=== PATIENT | male | born 1965 | race Caucasian/White ===

== ENCOUNTER 2022-07-15 06:53 | Emergency (ER) | payer OTHER, MEDICAID ==
[~2022-07-15] VITALS: Ht 172.7 cm; Wt 108.9 kg
[~2022-07-15 06:53] MED LIST: ARIP15TA2 PO; LEXAPRO PO; METF1000 PO
[2022-07-15 07:10] VITALS: BP_SYST 147
--- NOTE | 2022-07-15 07:20 | NUR ---
Placed in room 05 . Placed on putty glazer, blood pressure machine and pulse oximeter. To gown for exam. Side rails up. Report given to SOREN FLORES.
--- NOTE | 2022-07-15 07:21 | NUR ---
ER DR. NGUYỄN EXAMINING PT
[2022-07-15] MEDS ORDERED: KETOROLAC TROMETHAMINE 60 MG/2 ML VIAL IM ONE (07:45)
--- NOTE | 2022-07-15 08:02 | NUR ---
MEDICATED ORDERED, WILL MONITOR
--- NOTE | 2022-07-15 08:14 | NUR ---
TAKEN TO RADIOLOGY VIA AMBULATORY
--- NOTE | 2022-07-15 08:20 | NUR ---
RETURNED TO BED #5 SAFELY, NO CHANGES
--- NOTE | 2022-07-15 08:36 | NUR ---
PT STATES GOOD RELIEF WITH TORADOL, STATES PAIN ONLY WHEN HE COUGHS OR SNEEZES.
--- NOTE | 2022-07-15 08:40 | NUR ---
DR NGUYỄN AT BEDSIDE FOR RE-EVALUATION. SPEAKING WITH PT REGARDING XRAYS
[2022-07-15] MEDS ORDERED: HYDR-3927 PO (08:52)
--- NOTE | 2022-07-15 09:06 | NUR ---
Patient given written and verbal discharge instructions and verbalizes understanding. ER MD discussed with patient the results and treatment provided. Patient in stable condition. ID arm band removed. Rx of NORCO given. Patient educated on pain management and to follow up with PMD. Pain Scale 0/10. Opportunity for questions provided and answered. Medication side effect fact sheet provided.
== END 2022-07-15 09:06 | disposition home or self-care (01) ==
LOC: SED 06:53
DX: S22.32XA Fracture of one rib, left side, initial encounter for closed fracture (principal); E11.9 Type 2 diabetes mellitus without complications; Z88.1 Allergy status to other antibiotic agents; Z79.899 Other long term (current) drug therapy; X58.XXXA Exposure to other specified factors, initial encounter; Y93.89 Activity, other specified; Y92.89 Other specified places as the place of occurrence of the external cause; Y99.8 Other external cause status
CPT/HCPCS: 99283; 71045; 93005; 71100; 96372; J1885

== ENCOUNTER 2023-01-02 12:42 | Inpatient (IN) | payer OTHER, MEDICAID ==
[~2023-01-02] VITALS: Ht 172.7 cm; Wt 117.9 kg
[~2023-01-02 12:42] MED LIST changes: +HYDR-3927 PO
[2023-01-02 12:54] VITALS: BP_SYST 124; PULSE 124; RESP 18; TEMP 99.9; O2SAT 20; O2SAT 95
[2023-01-02 13:57] LABS: HEMOGLOBIN 15.1 g/dL (14.0-18.0); MEAN CORPUSCULAR HEMOGLOBIN 29 pg (27-31); MEAN CORPUSCULAR HGB CONC 34 % (32-36); MEAN CORPUSCULAR VOLUME 87 fL (79.0-98.0); PLATELET COUNT (AUTO) 226 K/uL (130-430); RED BLOOD CELL COUNT(AUTO) 5.18 MIL/uL (4.2-6.2); RED CELL DISTRIBUTION WIDTH 13.3 % (9.0-15.0)
[2023-01-02 13:59] LABS: BILIRUBIN,URINE NEGATIVE (NEGATIVE); CLARITY/URINE CLEAR (CLEAR); COLOR,URINE YELLOW (YELLOW); GLUCOSE,URINE TRACE (NEGATIVE); KETONES,URINE NEGATIVE (NEGATIVE); LEUKOCYTE ESTERASE ,URINE NEGATIVE (NEGATIVE); NITRITE, URINE NEGATIVE (NEGATIVE); PROTEIN URINE NEGATIVE (NEGATIVE); UROBILINOGEN,URINE 0.2 (0.2-1.0)
[2023-01-02 14:02] LABS: BLOOD, URINE TRACE (NEGATIVE)
[2023-01-02 14:05] LABS: WHITE BLOOD COUNT (AUTO) 30.5 K/uL (4.8-10.8)
[2023-01-02 14:06] LABS: ANION GAP 11 (5-15); CALCIUM 9.2 mg/dL (8.4-11.0); CARBON DIOXIDE 22 mmol/L (23-29); CHLORIDE 97 mmol/L (98-107); CREATININE 1.16 mg/dL (0.55-1.30); GFR AFRICAN AMERICAN 84 mL/min (>90); GLUCOSE 192 mg/dL (74-106); POTASSIUM 4.5 mmol/L (3.5-5.1); SODIUM SERUM 130 mmol/L (136-145); UREA NITROGEN, BLOOD 15 mg/dL (8-21)
[2023-01-02 14:08] LABS: GFR NON AFRICAN-AMERICAN 69 mL/min (>90)
[2023-01-02 14:09] LABS: PROTHROMBIN TIME 10.3 SECS (9.5-12.5)
[2023-01-02 14:15] LABS: BACTERIA,URINE None Seen /HPF (None Seen); RBC,URINE 0-3 /HPF (0-3); WBC,URINE NONE SEEN /HPF (0-3)
[2023-01-02 14:22] LABS: ALBUMIN 3.8 g/dL (3.4-4.8); ASPARTATE AMINOTRANSFERASE 12 U/L (10-37); THYROID STIMULATING HORMONE 1.34 uIu/mL (0.34-4.82); TOTAL BILIRUBIN 0.6 mg/dL (0.0-1.0); TOTAL PROTEIN, SERUM 7.6 g/dL (6.4-8.3)
[2023-01-02 14:35] LABS: ALANINE AMINOTRANSFERASE 17 U/L (12-78)
[2023-01-02 14:38] LABS: BAND % (MANUAL) 7 % (0-6); LYMPHOCYTES % (MANUAL) 7 % (20-46)
[2023-01-02 14:39] LABS: BASOPHILS % (MANUAL) 0 % (0-2); EOSINOPHILS % (MANUAL) 0 % (0-7); MONOCYTES % (MANUAL) 4 % (0-11); PLATELET ESTIMATE ADEQUATE (ADEQUATE)
[2023-01-02] MEDS ORDERED: NACL 0.9% 1,000 ML IV ONE (15:15)
[2023-01-02 16:30] VITALS: BP_SYST 111; PULSE 98; RESP 18; TEMP 98.2; O2SAT 94
[2023-01-02] MEDS ORDERED: TRAZ-251 PO (16:30)
[2023-01-02] MEDS ORDERED: TAMS0.4C96 PO (16:30)
[2023-01-02] MEDS ORDERED: OLAN10TA71 PO (16:30)
[2023-01-02] MEDS ORDERED: BENZ1TAB7 PO (16:30)
[2023-01-02] MEDS ORDERED: HAL5 PO (16:30)
[2023-01-02] MEDS ORDERED: LAMO100T2 PO (16:30)
[2023-01-02] MEDS ORDERED: LISI20TA30 PO (16:30)
[2023-01-02] MEDS ORDERED: PROP20TA7 PO (16:30)
[2023-01-02] MEDS ORDERED: PRIM250T8 PO (16:30)
[2023-01-02 16:39] VITALS: BP_SYST 111; PULSE 105; RESP 17; TEMP 97.2
[2023-01-02 17:43] LABS: INFLUENZA TYPE A negative (NEGATIVE); INFLUENZA TYPE B NEGATIVE (NEGATIVE)
[2023-01-02] MEDS ORDERED: BACITRACIN 1 GM OINT TP ONE (18:26)
[2023-01-02 20:00] VITALS: BP_SYST 109; PULSE 107; RESP 18; TEMP 97.2; O2SAT 96
[2023-01-02] MEDS ORDERED: NALOXONE HCL 0.4 MG/ML AMP (NARCAN) IVP PRN (22:15)
[2023-01-02] MEDS ORDERED: HYDROcodone/ACETAMIN 5-325 MG TAB (NORCO/ VICODIN) PO PRN (22:15)
[2023-01-02] MEDS ORDERED: HYDROcodone/ACETAMIN 10-325 MG TAB PO PRN (22:15)
[2023-01-02] MEDS ORDERED: LORazepam 2 MG/ML VIAL IVP PRN (22:15)
[2023-01-02] MEDS ORDERED: ONDANSETRON HCL 4 MG/2 ML VIAL IVP PRN (22:15)
[2023-01-02] MEDS ORDERED: ACETAMINOPHEN 325 MG TABLET PO PRN (22:15)
[2023-01-03] MEDS: cefTRIAXone 1 GM IVPB PREMIX 50 ML IV SCH ×2 (01:25→22:43)
[2023-01-03 05:24] LABS: BASOPHILS # (AUTO) 0.1 K/uL (0.0-0.2); BASOPHILS % (AUTO) 0.5 % (0.0-2.0); EOSINOPHILS # (AUTO) 0.7 K/uL (0.0-0.4); EOSINOPHILS % (AUTO) 4.7 % (0.0-4.0); HEMATOCRIT 40.4 % (36-54); HEMOGLOBIN 13.8 g/dL (14.0-18.0); LYMPHOCYTES # (AUTO) 2.1 K/uL (1.0-5.5); LYMPHOCYTES % (AUTO) 13.6 % (20.5-51.5); MEAN CORPUSCULAR HEMOGLOBIN 30 pg (27-31); MEAN CORPUSCULAR HGB CONC 34 % (32-36); MEAN CORPUSCULAR VOLUME 87 fL (79.0-98.0); MONOCYTES % (AUTO) 6.9 % (1.7-9.3); NEUTROPHILS # (AUTO) 11.2 K/uL (1.8-7.7); NEUTROPHILS % (AUTO) 74.3 % (40.0-70.0); PLATELET COUNT (AUTO) 175 K/uL (130-430); RED BLOOD CELL COUNT(AUTO) 4.65 MIL/uL (4.2-6.2); RED CELL DISTRIBUTION WIDTH 13.2 % (9.0-15.0)
[2023-01-03 06:12] LABS: ALBUMIN 3.3 g/dL (3.4-4.8); CALCIUM 8.7 mg/dL (8.4-11.0); CREATININE 0.97 mg/dL (0.55-1.30); PHOSPHORUS 3.2 mg/dL (2.7-4.5); POTASSIUM 3.9 mmol/L (3.5-5.1); TOTAL BILIRUBIN 0.3 mg/dL (0.0-1.0); TOTAL PROTEIN, SERUM 6.7 g/dL (6.4-8.3)
[2023-01-03 07:00] VITALS: BP_SYST 114; PULSE 83; RESP 16; TEMP 98
[2023-01-03 09:00] VITALS: BP_SYST 110; PULSE 82; RESP 16; TEMP 97; O2SAT 93; O2SAT 95
[2023-01-03] MEDS ORDERED: PROPRANOLOL HCL 10 MG TABLET (INDERAL) PO SCH (09:00)
[2023-01-03] MEDS: metFORMIN HCL 500 MG TABLET PO SCH ×2 (09:41→22:22)
[2023-01-03] MEDS: HALOPERIDOL 5 MG TABLET (HALDOL) PO SCH ×3 (09:41→22:24)
[2023-01-03] MEDS: PRIMIDONE 250 MG TABLET PO SCH ×3 (09:41→22:24)
[2023-01-03] MEDS: BENZTROPINE MESYLATE 1 MG TABLET PO SCH (09:41)
[2023-01-03] MEDS: ARIPiprazole 5 MG TAB PO SCH (09:41)
[2023-01-03] MEDS: TAMSULOSIN HCL 0.4 MG CAP PO SCH (09:41)
[2023-01-03] MEDS: LamoTRIgine 100 MG TABLET PO SCH ×2 (09:41→22:22)
[2023-01-03] MEDS: INSULIN GLARGINE 100 UNITS/ML, 10 ML VIAL SUBCUT SCH (11:56)
[2023-01-03 12:00] VITALS: BP_SYST 110; PULSE 82; RESP 16; TEMP 97
[2023-01-03 16:00] VITALS: BP_SYST 97; PULSE 91; RESP 16; TEMP 98.5; O2SAT 92
[2023-01-03 18:00] VITALS: BP_SYST 111; PULSE 99; RESP 16; TEMP 97.5; O2SAT 95
[2023-01-03 20:00] VITALS: BP_SYST 114; PULSE 90; RESP 17; TEMP 97.4; O2SAT 90
[2023-01-03] MEDS ORDERED: traZODone HCL 50 MG TABLET (DESYREL) PO SCH (21:00)
[2023-01-03] MEDS ORDERED: OLANZapine 10 MG TABLET PO SCH (21:00)
[2023-01-03] MEDS ORDERED: lisinopriL 20 MG TABLET PO SCH (21:00)
[2023-01-03] MEDS: PROPRANOLOL HCL 10 MG TABLET (INDERAL) PO SCH (22:23)
[2023-01-04 00:11] VITALS: BP_SYST 101; PULSE 78; RESP 20; TEMP 97; O2SAT 95
[2023-01-04 01:36] VITALS: O2SAT 96
[2023-01-04 08:00] VITALS: BP_SYST 109; PULSE 92; RESP 20; TEMP 97.2; O2SAT 92
[2023-01-04 09:20] LABS: BASOPHILS # (AUTO) 0.1 K/uL (0.0-0.2); BASOPHILS % (AUTO) 0.6 % (0.0-2.0); EOSINOPHILS # (AUTO) 0.7 K/uL (0.0-0.4); EOSINOPHILS % (AUTO) 6.1 % (0.0-4.0); HEMATOCRIT 41.4 % (36-54); HEMOGLOBIN 13.9 g/dL (14.0-18.0); LYMPHOCYTES # (AUTO) 1.3 K/uL (1.0-5.5); LYMPHOCYTES % (AUTO) 11.9 % (20.5-51.5); MEAN CORPUSCULAR HEMOGLOBIN 29 pg (27-31); MEAN CORPUSCULAR HGB CONC 34 % (32-36); MEAN CORPUSCULAR VOLUME 88 fL (79.0-98.0); MONOCYTES % (AUTO) 8.9 % (1.7-9.3); NEUTROPHILS # (AUTO) 8.1 K/uL (1.8-7.7); NEUTROPHILS % (AUTO) 72.5 % (40.0-70.0); PLATELET COUNT (AUTO) 186 K/uL (130-430); RED BLOOD CELL COUNT(AUTO) 4.73 MIL/uL (4.2-6.2); RED CELL DISTRIBUTION WIDTH 13.1 % (9.0-15.0); WHITE BLOOD COUNT (AUTO) 11.1 K/uL (4.8-10.8)
[2023-01-04] MEDS: TAMSULOSIN HCL 0.4 MG CAP PO SCH (09:35)
[2023-01-04] MEDS: ARIPiprazole 5 MG TAB PO SCH (09:36)
[2023-01-04] MEDS: metFORMIN HCL 500 MG TABLET PO SCH (09:36)
[2023-01-04] MEDS: BENZTROPINE MESYLATE 1 MG TABLET PO SCH (09:36)
[2023-01-04] MEDS: PROPRANOLOL HCL 10 MG TABLET (INDERAL) PO SCH (09:36)
[2023-01-04] MEDS: LamoTRIgine 100 MG TABLET PO SCH (09:36)
[2023-01-04] MEDS: INSULIN GLARGINE 100 UNITS/ML, 10 ML VIAL SUBCUT SCH (09:41)
[2023-01-04] MEDS: HALOPERIDOL 5 MG TABLET (HALDOL) PO SCH ×2 (09:45→14:57)
[2023-01-04] MEDS: PRIMIDONE 250 MG TABLET PO SCH ×2 (09:45→14:57)
[2023-01-04 11:46] VITALS: BP_SYST 98; PULSE 90; RESP 18; TEMP 97.8; O2SAT 94
[2023-01-04] MEDS ORDERED: AMOX-423 PO (15:35)
[2023-01-04 16:00] VITALS: BP_SYST 111; PULSE 92; RESP 20; TEMP 98.1; O2SAT 95
[2023-01-04 19:43] VITALS: BP_SYST 102; PULSE 77; RESP 17; TEMP 96.8; O2SAT 92
== END 2023-01-04 20:35 | disposition home or self-care (01) | DRG 871 ==
LOC: SED 12:42 → STU 15:24 → SMU 01-04 17:38
PROVIDERS: ADMIT Specialist; ATTEND Specialist
DX: A41.9 Sepsis, unspecified organism (principal); J96.20 Acute and chronic respiratory failure, unspecified whether with hypoxia or hypercapnia; I48.0 Paroxysmal atrial fibrillation; E66.01 Morbid (severe) obesity due to excess calories; N40.0 Benign prostatic hyperplasia without lower urinary tract symptoms; Z20.822 Contact with and (suspected) exposure to COVID-19; E11.9 Type 2 diabetes mellitus without complications; Z68.39 Body mass index [BMI] 39.0-39.9, adult; Z79.01 Long term (current) use of anticoagulants; Z79.891 Long term (current) use of opiate analgesic; Z79.899 Other long term (current) drug therapy
CPT/HCPCS: 36415; 71045; 76376; 80053; 81000; 82962; 83605; 83735; 83880; 84100; 84439; 84443; 84484; 85007; 85025; 85027; 85610-TC; 85730-TC; 87040; 87086; 93005; 93306; 96360; 96361; 99291; G0378; J0696; J1815

== ENCOUNTER 2023-07-30 17:03 | Emergency (ER) | payer OTHER, MEDICAID ==
[~2023-07-30] VITALS: Ht 172.7 cm; Wt 113.4 kg
[2023-07-30 17:03] VITALS: BP_SYST 146; PULSE 105; RESP 18; TEMP 97.8; O2SAT 98
[~2023-07-30 17:03] MED LIST changes: +AMOX-423 PO; +BENZ1TAB7 PO; +HAL5 PO; +LAMO100T2 PO; +LISI20TA30 PO; +OLAN10TA71 PO; +PRIM250T8 PO; +PROP20TA7 PO; +TAMS0.4C96 PO; +TRAZ-251 PO
[2023-07-30] MEDS ORDERED: NITR-85 PO (17:21)
[2023-07-30] MEDS ORDERED: PHEN-726 PO (17:21)
[2023-07-30 18:00] LABS: PROTHROMBIN TIME 10.1 SECS (9.5-12.5)
[2023-07-30 18:03] LABS: BASOPHILS # (AUTO) 0.1 K/uL (0.0-0.2); EOSINOPHILS # (AUTO) 0.7 K/uL (0.0-0.4); EOSINOPHILS % (AUTO) 6.7 % (0.0-4.0); HEMATOCRIT 44.4 % (36-54); HEMOGLOBIN 15.7 g/dL (14.0-18.0); LYMPHOCYTES # (AUTO) 2.2 K/uL (1.0-5.5); LYMPHOCYTES % (AUTO) 21.1 % (20.5-51.5); MEAN CORPUSCULAR HEMOGLOBIN 30 pg (27-31); MEAN CORPUSCULAR HGB CONC 36 % (32-36); MEAN CORPUSCULAR VOLUME 85 fL (79.0-98.0); MONOCYTES # (AUTO) 0.8 K/uL (0.0-1.0); MONOCYTES % (AUTO) 8.1 % (1.7-9.3); NEUTROPHILS # (AUTO) 6.5 K/uL (1.8-7.7); NEUTROPHILS % (AUTO) 63.1 % (40.0-70.0); PLATELET COUNT (AUTO) 227 K/uL (130-430); RED BLOOD CELL COUNT(AUTO) 5.21 MIL/uL (4.2-6.2); RED CELL DISTRIBUTION WIDTH 13.8 % (9.0-15.0); WHITE BLOOD COUNT (AUTO) 10.3 K/uL (4.8-10.8)
[2023-07-30 18:07] LABS: ANION GAP 11 (5-15); CALCIUM 8.6 mg/dL (8.4-11.0); CARBON DIOXIDE 24 mmol/L (23-29); CHLORIDE 99 mmol/L (98-107); CREATININE 1.27 mg/dL (0.55-1.30); GFR AFRICAN AMERICAN 75 mL/min (>90); GLUCOSE 241 mg/dL (74-106); POTASSIUM 4.6 mmol/L (3.5-5.1); SODIUM SERUM 134 mmol/L (136-145); UREA NITROGEN, BLOOD 19 mg/dL (8-21)
[2023-07-30 18:08] LABS: GFR NON AFRICAN-AMERICAN 62 mL/min (>90)
[2023-07-30] MEDS: ASPIRIN 81 MG TAB.CHEW PO ONE (19:32)
[2023-07-30 20:33] VITALS: BP_SYST 132; PULSE 92; RESP 20; TEMP 97.5; O2SAT 97
== END 2023-07-30 20:23 | disposition home or self-care (01) ==
LOC: SED 17:03
DX: R06.02 Shortness of breath (principal); E11.9 Type 2 diabetes mellitus without complications; Z88.8 Allergy status to other drugs, medicaments and biological substances; Z79.899 Other long term (current) drug therapy
CPT/HCPCS: 36415; 71045; 80048; 83880; 84484; 85025; 85379; 85610; 85730; 93005; 99285

== ENCOUNTER 2023-08-19 11:35 | Emergency (ER) | payer OTHER, MEDICAID ==
[~2023-08-19] VITALS: Ht 172.7 cm; Wt 113.4 kg
[2023-08-19 11:44] VITALS: BP_SYST 133; PULSE 107; RESP 16; TEMP 97.4; O2SAT 94
[2023-08-19] MEDS ORDERED: cefTRIAXone 2 GM VIAL ONE (12:10)
[2023-08-19] MEDS: cefTRIAXone 2 GM VIAL IM ONE (12:16)
[2023-08-19 12:42] LABS: BASOPHILS # (AUTO) 0.1 K/uL (0.0-0.2); EOSINOPHILS # (AUTO) 0.6 K/uL (0.0-0.4); EOSINOPHILS % (AUTO) 4.8 % (0.0-4.0); HEMATOCRIT 43.8 % (36-54); HEMOGLOBIN 15.2 g/dL (14.0-18.0); LYMPHOCYTES # (AUTO) 1.7 K/uL (1.0-5.5); LYMPHOCYTES % (AUTO) 14.7 % (20.5-51.5); MEAN CORPUSCULAR HEMOGLOBIN 30 pg (27-31); MEAN CORPUSCULAR HGB CONC 35 % (32-36); MEAN CORPUSCULAR VOLUME 85 fL (79.0-98.0); MONOCYTES # (AUTO) 0.8 K/uL (0.0-1.0); MONOCYTES % (AUTO) 6.9 % (1.7-9.3); NEUTROPHILS # (AUTO) 8.6 K/uL (1.8-7.7); NEUTROPHILS % (AUTO) 72.6 % (40.0-70.0); PLATELET COUNT (AUTO) 235 K/uL (130-430); RED BLOOD CELL COUNT(AUTO) 5.13 MIL/uL (4.2-6.2); WHITE BLOOD COUNT (AUTO) 11.9 K/uL (4.8-10.8)
[2023-08-19] MEDS ORDERED: CEPH250C PO (13:59)
[2023-08-19] MEDS ORDERED: CLIN300C3 PO (13:59)
[2023-08-19 14:31] VITALS: BP_SYST 129; PULSE 95; RESP 22; TEMP 97.8; O2SAT 94
== END 2023-08-19 14:36 | disposition home or self-care (01) ==
LOC: SED 11:35
DX: L03.116 Cellulitis of left lower limb (principal); E11.9 Type 2 diabetes mellitus without complications; Z88.1 Allergy status to other antibiotic agents; Z79.899 Other long term (current) drug therapy
CPT/HCPCS: 99283; 85025; 87040; 36415; 93005; 96372; J0696

== ENCOUNTER 2023-08-20 16:57 | Emergency (ER) | payer OTHER, MEDICAID ==
[~2023-08-20] VITALS: Ht 172.7 cm; Wt 113.4 kg
[~2023-08-20 16:57] MED LIST changes: +CEPH250C PO; +CLIN300C3 PO
[2023-08-20 17:32] VITALS: BP_SYST 114; PULSE 117; RESP 18; TEMP 97; O2SAT 92
[2023-08-20 19:42] LABS: BILIRUBIN,URINE NEGATIVE (NEGATIVE); BLOOD, URINE NEGATIVE (NEGATIVE); CLARITY/URINE CLEAR (CLEAR); COLOR,URINE YELLOW (YELLOW); GLUCOSE,URINE NEGATIVE (NEGATIVE); KETONES,URINE NEGATIVE (NEGATIVE); LEUKOCYTE ESTERASE ,URINE NEGATIVE (NEGATIVE); NITRITE, URINE NEGATIVE (NEGATIVE); PROTEIN URINE NEGATIVE (NEGATIVE); UROBILINOGEN,URINE 0.2 (0.2-1.0)
[2023-08-20 19:47] LABS: BASOPHILS # (AUTO) 0.1 K/uL (0.0-0.2); BASOPHILS % (AUTO) 0.7 % (0.0-2.0); EOSINOPHILS # (AUTO) 0.7 K/uL (0.0-0.4); EOSINOPHILS % (AUTO) 6.2 % (0.0-4.0); HEMATOCRIT 44.2 % (36-54); HEMOGLOBIN 15.3 g/dL (14.0-18.0); LYMPHOCYTES # (AUTO) 1.6 K/uL (1.0-5.5); LYMPHOCYTES % (AUTO) 13.3 % (20.5-51.5); MEAN CORPUSCULAR HEMOGLOBIN 29 pg (27-31); MEAN CORPUSCULAR HGB CONC 35 % (32-36); MEAN CORPUSCULAR VOLUME 85 fL (79.0-98.0); MONOCYTES # (AUTO) 1.2 K/uL (0.0-1.0); MONOCYTES % (AUTO) 9.7 % (1.7-9.3); NEUTROPHILS # (AUTO) 8.4 K/uL (1.8-7.7); NEUTROPHILS % (AUTO) 70.1 % (40.0-70.0); PLATELET COUNT (AUTO) 250 K/uL (130-430); RED BLOOD CELL COUNT(AUTO) 5.23 MIL/uL (4.2-6.2); RED CELL DISTRIBUTION WIDTH 13.8 % (9.0-15.0)
[2023-08-20 19:54] LABS: PROTHROMBIN TIME 10.2 SECS (9.5-12.5)
[2023-08-20] MEDS: NACL 0.9% 1,000 ML IV ONE (19:59)
[2023-08-20 20:05] LABS: ANION GAP 9 (5-15); CALCIUM 9.4 mg/dL (8.4-11.0); CARBON DIOXIDE 25 mmol/L (23-29); CHLORIDE 99 mmol/L (98-107); GFR AFRICAN AMERICAN 80 mL/min (>90); GLUCOSE 154 mg/dL (74-106); POTASSIUM 4.7 mmol/L (3.5-5.1); SODIUM SERUM 133 mmol/L (136-145); UREA NITROGEN, BLOOD 26 mg/dL (8-21)
[2023-08-20 20:08] LABS: GFR NON AFRICAN-AMERICAN 66 mL/min (>90)
[2023-08-20 20:10] LABS: ALANINE AMINOTRANSFERASE 21 U/L (12-78); ALBUMIN 3.7 g/dL (3.4-4.8); ASPARTATE AMINOTRANSFERASE 14 U/L (10-37); BILIRUBIN,DIRECT 0.1 mg/dL (0.0-0.3); TOTAL BILIRUBIN 0.3 mg/dL (0.0-1.0); TOTAL PROTEIN, SERUM 7.4 g/dL (6.4-8.3)
[2023-08-20] MEDS ORDERED: ceFAZolin SODIUM 1 GM VIAL ONE (21:12)
[2023-08-20] MEDS: KETOROLAC TROMETHAMINE 30 MG VIAL IVP ONE (21:15)
[2023-08-20] MEDS: CLINDAMYCIN 900 mg/50mL D5W 50 ML IV ONE (21:18)
[2023-08-20] MEDS: CEFAZOLIN 2 GM IVPB PREMIX 50 ML IV ONE (21:59)
[2023-08-20 23:25] VITALS: BP_SYST 110; PULSE 91; RESP 16; TEMP 98.6; O2SAT 98
== END 2023-08-20 23:27 | disposition home or self-care (01) ==
LOC: SED 16:57
DX: L03.116 Cellulitis of left lower limb (principal); E11.9 Type 2 diabetes mellitus without complications; Z88.1 Allergy status to other antibiotic agents; Z79.899 Other long term (current) drug therapy
CPT/HCPCS: 99285; 96365; 71045; 96367; 96361; 80076; 80048; 81001; 85025; 85610; 85730; 87040; 87086; 84484; 36415; 93005; 83605; 81003; J0690; J3490; J7030

== ENCOUNTER 2023-09-05 09:26 | Emergency (ER) | payer OTHER, MEDICAID ==
[~2023-09-05] VITALS: Ht 172.7 cm; Wt 113.4 kg
[2023-09-05 09:59] VITALS: BP_SYST 121; PULSE 122; RESP 16; TEMP 98.2; O2SAT 92
[2023-09-05 10:17] VITALS: BP_SYST 121; PULSE 122; RESP 16; TEMP 98.2; O2SAT 92
== END 2023-09-05 10:17 | disposition home or self-care (01) ==
LOC: SED 09:26
DX: S90.31XA Contusion of right foot, initial encounter (principal); E11.9 Type 2 diabetes mellitus without complications; Z88.1 Allergy status to other antibiotic agents; Z79.899 Other long term (current) drug therapy; X58.XXXA Exposure to other specified factors, initial encounter; Y93.89 Activity, other specified; Y92.89 Other specified places as the place of occurrence of the external cause; Y99.8 Other external cause status
CPT/HCPCS: 99281

== ENCOUNTER 2024-03-25 12:52 | Emergency (ER) | payer OTHER, MEDICAID ==
[~2024-03-25] VITALS: Ht 172.7 cm; Wt 113.4 kg
[2024-03-25 12:52] VITALS: BP_SYST 144; PULSE 117; RESP 20; TEMP 97.2; O2SAT 98
[2024-03-25] MEDS: LORazepam 1 MG TABLET PO ONE (14:58)
[2024-03-25 15:04] LABS: BASOPHILS # (AUTO) 0.1 K/uL (0.0-0.2); BASOPHILS % (AUTO) 0.9 % (0.0-2.0); EOSINOPHILS # (AUTO) 0.6 K/uL (0.0-0.4); EOSINOPHILS % (AUTO) 5.7 % (0.0-4.0); HEMOGLOBIN 15.7 g/dL (14.0-18.0); LYMPHOCYTES # (AUTO) 0.7 K/uL (1.0-5.5); LYMPHOCYTES % (AUTO) 6.5 % (20.5-51.5); MEAN CORPUSCULAR HEMOGLOBIN 28 pg (27-31); MEAN CORPUSCULAR HGB CONC 33 % (32-36); MEAN CORPUSCULAR VOLUME 84 fL (79.0-98.0); MONOCYTES # (AUTO) 1.2 K/uL (0.0-1.0); MONOCYTES % (AUTO) 10.4 % (1.7-9.3); NEUTROPHILS # (AUTO) 8.6 K/uL (1.8-7.7); NEUTROPHILS % (AUTO) 76.5 % (40.0-70.0); PLATELET COUNT (AUTO) 211 K/uL (130-430); RED BLOOD CELL COUNT(AUTO) 5.62 MIL/uL (4.2-6.2); RED CELL DISTRIBUTION WIDTH 13.6 % (9.0-15.0); WHITE BLOOD COUNT (AUTO) 11.3 K/uL (4.8-10.8)
[2024-03-25 15:25] LABS: ALBUMIN 4.3 g/dL (3.4-4.8); CALCIUM 9.9 mg/dL (8.4-11.0); CREATININE 1.25 mg/dL (0.55-1.30); POTASSIUM 4.8 mmol/L (3.5-5.1); TOTAL BILIRUBIN 0.5 mg/dL (0.0-1.0); TOTAL PROTEIN, SERUM 7.3 g/dL (6.4-8.3)
[2024-03-25 16:04] LABS: INFLUENZA TYPE A Negative (NEGATIVE); INFLUENZA TYPE B NEGATIVE (NEGATIVE)
[2024-03-25 16:06] LABS: BILIRUBIN,URINE NEGATIVE (NEGATIVE); BLOOD, URINE NEGATIVE (NEGATIVE); CLARITY/URINE CLEAR (CLEAR); COLOR,URINE YELLOW (YELLOW); GLUCOSE,URINE TRACE (NEGATIVE); KETONES,URINE NEGATIVE (NEGATIVE); LEUKOCYTE ESTERASE ,URINE NEGATIVE (NEGATIVE); NITRITE, URINE NEGATIVE (NEGATIVE); PH,URINE 5.5 (5.0-8.0); PROTEIN URINE NEGATIVE (NEGATIVE); UROBILINOGEN,URINE 0.2 (0.2-1.0)
[2024-03-25] MEDS ORDERED: LORA-259 PO (18:03)
[2024-03-25 18:40] VITALS: BP_SYST 130; PULSE 107; RESP 18; TEMP 97.2; O2SAT 95
== END 2024-03-25 18:42 | disposition home or self-care (01) ==
LOC: SED 12:52
DX: F41.9 Anxiety disorder, unspecified (principal); T43.595A Adverse effect of other antipsychotics and neuroleptics, initial encounter; M79.10 Myalgia, unspecified site; R53.81 Other malaise; R06.02 Shortness of breath; E11.9 Type 2 diabetes mellitus without complications; I10 Essential (primary) hypertension; E66.01 Morbid (severe) obesity due to excess calories; Z20.822 Contact with and (suspected) exposure to COVID-19; Z68.38 Body mass index [BMI] 38.0-38.9, adult; Z79.84 Long term (current) use of oral hypoglycemic drugs; Z79.899 Other long term (current) drug therapy; Y92.89 Other specified places as the place of occurrence of the external cause
CPT/HCPCS: 36415; 71045; 80053; 81001; 81003; 85025; 93005; 99284